=== PATIENT | male | born 1995 | race Two or more races ===

== ENCOUNTER 2025-02-16 19:47 | Emergency (ER) | payer OTHER ==
[~2025-02-16] VITALS: Ht 162.6 cm; Wt 68.0 kg
[2025-02-16 20:12] VITALS: BP 122/76; O2SAT 99
[2025-02-16] MEDS ORDERED: KETOROLAC TROMETHAMINE 60 MG VIAL IM ONE (20:30)
[2025-02-16 20:43] LABS: BASO % 1.1 % (0.1-1.2); EOS # 0.39 (0.04-0.54); EOS % 6.2 % (0.7-7.0); LYMPH # 2.09 (1.18-3.74); LYMPH % 33.1 % (19.3-53.1); MEAN PLATELET VOLUME 9.40 fl (9.4-12.4); MONO # 0.65 (0.24-0.82); MONO % 10.3 % (4.7-12.5); NEUT # 3.09 (1.56-6.13); NEUT % 48.8 % (34.0-71.1); RED CELL DISTRIBUTION WIDTH 13.0 % (11.6-14.4)
[2025-02-16 21:00] LABS: ERYTHROCYTE SEDIMENTATION RATE < 1 mm/hr (0-15)
[2025-02-16 21:06] LABS: INR 1.07
[2025-02-16 21:10] LABS: D DIMER < 0.19 MG/L
[2025-02-16 21:21] LABS: COVID-19 AG NEGATIVE (NEGATIVE)
[2025-02-16] MEDS ORDERED: NORFLEX100MG PO (22:28)
== END 2025-02-16 22:44 | disposition home or self-care (01) ==
LOC: ER 19:47
PROVIDERS: General Practice
DX: R42 Dizziness and giddiness (principal); M79.605 Pain in left leg; Z20.822 Contact with and (suspected) exposure to COVID-19

== ENCOUNTER 2025-02-17 11:59 | Emergency (ER) | payer OTHER ==
[~2025-02-17] VITALS: Ht 162.6 cm; Wt 68.0 kg
[~2025-02-17 11:59] MED LIST: NORFLEX100MG PO
[2025-02-17] MEDS ORDERED: KETOROLAC TROMETHAMINE 10 MG TABLET PO PRN (16:30)
== END 2025-02-17 17:22 | disposition home or self-care (01) ==
LOC: ER 11:59
DX: M79.605 Pain in left leg (principal); Z88.0 Allergy status to penicillin